=== PATIENT | male | born 1960 | race Caucasian/White ===

== ENCOUNTER → 2021-01-25 07:33 | Outpatient (CLI) | payer OTHER, SELFPAY ==
[2021-01-25] MEDS: COVID-19 VACC #1, MRNA(MOD) 100 MCG/0.5 ML VIAL IM (07:40)
== END ==
PROVIDERS: Visit Provider Internal Medicine
DX: Z23 Encounter for immunization (principal)
CPT/HCPCS: 0011A; 91301

== ENCOUNTER → 2021-02-14 08:28 | Outpatient (CLI) | payer OTHER, SELFPAY ==
[2021-02-14 08:48] LABS: Add Manual Diff / Slide Review NO; Basophils Absolute Auto 0 /uL (0-100); Basophils Percent Auto 0.4 % (0-2); Eosinophils Absolute Auto 100 /uL (0-450); Hematocrit 39.8 % (41-53); Hemoglobin 13.7 g/dL (13.5-17.5); Lymphocytes Absolute Auto 1300 /uL (1100-4500); Lymphocytes Percent Auto 25.3 % (25-40); Mean Corpuscular HGB Conc 34.4 % (30-36); Mean Corpuscular Hemoglobin 31.7 PG (26-34); Mean Corpuscular Volume 92.1 fL (80-100); Monocytes Absolute Auto 400 /uL (0-900); Monocytes Percent Auto 7.2 % (3-14); Neutrophils Absolute Auto 3300 /uL (1500-7000); Neutrophils Percent Auto 66.1 % (50-75); Platelet Count 223 X10^3/uL (150-400); Red Blood Cell Count 4.32 X10^6/uL (4.5-5.9); Red Cell Distribution Width 13.1 % (11.6-14.8)
[2021-02-14 09:07] LABS: Alanine Aminotransferase 23 IU/L (<50); Albumin 4.1 g/dL (3.5-5.0); Albumin Globulin Ratio 1.5 (1.0-2.8); Alkaline Phosphatase 69 U/L (38-126); Aspartate Aminotransferase 25 IU/L (17-59); BUN Creatinine Ratio 18.1 (6-22); Bilirubin Total 0.5 mg/dL (0.2-1.3); Blood Urea Nitrogen 19 mg/dL (9-20); Carbon Dioxide 28 mmol/L (22-32); Chloride 105 mmol/L (98-107); Cholesterol 181 mg/dL (140-199); Estimated Glomerular Filt Rate > 60.0 mL/min (>60); Globulin 2.7 g/dL (1.7-4.1); Glucose 106 mg/dL (70-100); HDL Cholesterol 52 mg/dL (40-60); HEMOLYSIS < 15 (0-50); LDL Cholesterol Calculated 108 mg/dL (<100); Potassium 4.8 mmol/L (3.4-5.1); Sodium 139 mmol/L (137-145); Total Protein 6.8 g/dL (6.3-8.2); Triglycerides 107 mg/dL (35-150)
[2021-02-14 09:34] LABS: Prostate Specific Antigen Scrn 2.58 ng/mL (0.1-4.0)
== END ==
PROVIDERS: PCP Registered Nurse; Referring Provider Registered Nurse; Visit Provider Registered Nurse
DX: Z00.00 Encounter for general adult medical examination without abnormal findings (principal); J45.909 Unspecified asthma, uncomplicated; Z12.5 Encounter for screening for malignant neoplasm of prostate
CPT/HCPCS: 36415; 80053; 80061; 85025; G0103

== ENCOUNTER → 2021-02-22 07:33 | Outpatient (CLI) | payer OTHER, SELFPAY ==
[2021-02-22] MEDS: COVID-19 VACC #2, MRNA(MOD) 100 MCG/0.5 ML VIAL IM (07:40)
== END ==
PROVIDERS: PCP Registered Nurse; Visit Provider Internal Medicine
DX: Z23 Encounter for immunization (principal)
CPT/HCPCS: 0012A; 91301

== ENCOUNTER → 2021-07-23 08:22 | Outpatient (CLI) | payer OTHER, SELFPAY ==
[2021-07-23 09:09] LABS: COVID19 -Nasal RAPID Negative (Negative)
== END ==
PROVIDERS: PCP Registered Nurse; Visit Provider Physician Assistant
DX: Z20.822 Contact with and (suspected) exposure to COVID-19 (principal); R05 Cough; R19.7 Diarrhea, unspecified; R51.9 Headache, unspecified
CPT/HCPCS: 87635

== ENCOUNTER → 2022-05-21 12:35 | Outpatient (CLI) | payer OTHER, SELFPAY ==
[2022-05-21 13:56] LABS: COVID19 -Nasal RAPID Negative (Negative)
== END ==
PROVIDERS: PCP Family Medicine; Referring Provider Internal Medicine; Visit Provider Internal Medicine
DX: Z20.822 Contact with and (suspected) exposure to COVID-19 (principal)
CPT/HCPCS: 87635; C9803

== ENCOUNTER → 2022-05-22 06:52 | Outpatient (CLI) | payer OTHER, SELFPAY ==
[2022-05-22 08:54] LABS: Add Manual Diff / Slide Review NO; Basophils Absolute Auto 0 /uL (0-100); Basophils Percent Auto 0.4 % (0-2); Eosinophils Absolute Auto 0 /uL (0-450); Eosinophils Percent Auto 0.5 % (2-4); Hematocrit 41.2 % (41-53); Hemoglobin 14.4 g/dL (13.5-17.5); Lymphocytes Absolute Auto 1500 /uL (1100-4500); Lymphocytes Percent Auto 31.1 % (25-40); Mean Corpuscular HGB Conc 34.8 % (30-36); Mean Corpuscular Hemoglobin 31.8 PG (26-34); Mean Corpuscular Volume 91.2 fL (80-100); Monocytes Absolute Auto 400 /uL (0-900); Monocytes Percent Auto 7.9 % (3-14); Neutrophils Absolute Auto 2900 /uL (1500-7000); Neutrophils Percent Auto 60.1 % (50-75); Platelet Count 217 X10^3/uL (150-400); Red Blood Cell Count 4.52 X10^6/uL (4.5-5.9); White Blood Cell Count 4.8 X10^3/uL (4.5-11.0)
[2022-05-22 09:13] LABS: Hemoglobin A1C% w Est Avg Glu 5.4 % (4.0-6.0)
[2022-05-22 09:50] LABS: Alanine Aminotransferase 16 IU/L (<50); Albumin 4.4 g/dL (3.5-5.0); Albumin Globulin Ratio 1.6 (1.0-2.8); Alkaline Phosphatase 63 U/L (38-126); Aspartate Aminotransferase 25 IU/L (17-59); Bilirubin Total 0.8 mg/dL (0.2-1.3); Blood Urea Nitrogen 25 mg/dL (9-20); Calcium 8.9 mg/dL (8.4-10.2); Carbon Dioxide 27 mmol/L (22-32); Chloride 104 mmol/L (98-107); Cholesterol 175 mg/dL (140-199); Estimated Glomerular Filt Rate > 60 mL/min (>60); Globulin 2.7 g/dL (1.7-4.1); Glucose 102 mg/dL (80-110); HDL Cholesterol 54 mg/dL (40-60); HEMOLYSIS < 15 (0-50); LDL Cholesterol Calculated 106 mg/dL (<100); Potassium 4.6 mmol/L (3.4-5.1); Sodium 138 mmol/L (137-145); Total Protein 7.1 g/dL (6.3-8.2); Triglycerides 77 mg/dL (35-150)
[2022-05-22 10:20] LABS: Prostate Specific Antigen Scrn 2.42 ng/mL (0.1-4.0)
--- NOTE | 2022-05-28 09:23 | PM.PFT.1 ---
Pulmonary Function Test Referral & Results Date Patient Seen: 05/22/22 Requesting provider: Mihai Alarcon Results: The spirometry demonstrates an FVC of 5.22 L which is 95% of predicted. The FEV1 was measured at 4.0 L which is 97% of predicted. The FEV1/FVC ratio was 77 which is 100% of predicted. Following the administration of bronchodilator there was no notable change to above normal numbers. Lung volumes show an SVC of 5.17 L which is 97% of predicted. The diffusing capacity was measured at 35.57 which is 94% of predicted. The maximum voluntary ventilation was normal Interpretation: This study demonstrates normal pulmonary function
== END ==
PROVIDERS: PCP Family Medicine; Referring Provider Family Medicine; Visit Provider Family Medicine
DX: E78.2 Mixed hyperlipidemia (principal); J45.20 Mild intermittent asthma, uncomplicated; R73.9 Hyperglycemia, unspecified; Z12.5 Encounter for screening for malignant neoplasm of prostate
CPT/HCPCS: 36415; 80053; 80061; 83036; 84443; 85025; 94060; 94726; 94729; G0103

== ENCOUNTER → 2022-05-27 06:59 | Outpatient (CLI) | payer OTHER, SELFPAY ==
--- NOTE | 2022-05-27 07:08 | DI.CT.S_ITS ---
PROCEDURE: CT CHEST WO CON INDICATIONS: Long COVID, difficulty getting deep breath, fm hx lung CA TECHNIQUE: Noncontrast 5 mm thick sections acquired from the pulmonary apices to the posterior costophrenic angles. 1 mm lung window, 5 mm thick coronal and sagittal and 7 mm axial MIP reformats were then acquired. For radiation dose reduction, the following was used: automated exposure control, adjustment of mA and/or kV according to patient size. COMPARISON: None. FINDINGS: Image quality: Excellent. Lungs and pleura: No acute air space opacities. No pleural effusions or pneumothorax. Central and peripheral airways are patent and normal in caliber. There is an incidentally noted azygos lobe. Mediastinum: Heart size is normal. No pericardial effusion. No mediastinal adenopathy by size criteria. Thoracic aorta and central pulmonary arteries are normal in size. Esophagus is normal in caliber. No hiatal hernia. Bones and chest wall: No suspicious bony lesions. No vertebral body compression fractures. No axillary or supraclavicular adenopathy by size criteria. Thyroid gland is unremarkable . Abdomen: Visualized upper abdominal solid organs and bowel loops appear normal in the absence of contrast. IMPRESSION: 1. No pulmonary nodules, pulmonary mass lesions or acute airspace opacities. No findings to explain patient's symptoms. Dictated by: Sara Mcneal M.D. on 05/27/2022 at 7:55 Approved by: Sara Mcneal M.D. on 05/27/2022 at 8:00
== END ==
PROVIDERS: PCP Family Medicine; Referring Provider Family Medicine; Visit Provider Family Medicine
DX: U09.9 Post COVID-19 condition, unspecified (principal); J45.20 Mild intermittent asthma, uncomplicated; R06.00 Dyspnea, unspecified
CPT/HCPCS: 71250

== ENCOUNTER → 2023-04-24 09:12 | Outpatient (CLI) | payer OTHER, SELFPAY ==
[2023-04-24 10:36] LABS: Add Manual Diff / Slide Review NO; Basophils Absolute Auto 0 /uL (0-100); Basophils Percent Auto 0.3 % (0-2); Eosinophils Absolute Auto 0 /uL (0-450); Eosinophils Percent Auto 0.6 % (2-4); Hematocrit 40.1 % (41-53); Lymphocytes Absolute Auto 1600 /uL (1100-4500); Lymphocytes Percent Auto 25.9 % (25-40); Mean Corpuscular HGB Conc 34.9 % (30-36); Mean Corpuscular Hemoglobin 31.7 PG (26-34); Mean Corpuscular Volume 90.7 fL (80-100); Monocytes Absolute Auto 400 /uL (0-900); Monocytes Percent Auto 7.1 % (3-14); Neutrophils Absolute Auto 4100 /uL (1500-7000); Neutrophils Percent Auto 66.1 % (50-75); Platelet Count 218 X10^3/uL (150-400); Red Blood Cell Count 4.42 X10^6/uL (4.5-5.9); Red Cell Distribution Width 12.6 % (11.6-14.8); White Blood Cell Count 6.2 X10^3/uL (4.5-11.0)
[2023-04-24 11:17] LABS: Alanine Aminotransferase 28 IU/L (<50); Albumin 4.2 g/dL (3.5-5.0); Albumin Globulin Ratio 1.4 (1.0-2.8); Alkaline Phosphatase 72 U/L (38-126); Aspartate Aminotransferase 28 IU/L (17-59); BUN Creatinine Ratio 15.3 (6-22); Bilirubin Total 0.6 mg/dL (0.2-1.3); Blood Urea Nitrogen 17 mg/dL (9-20); Calcium 8.9 mg/dL (8.4-10.2); Carbon Dioxide 28 mmol/L (22-32); Chloride 103 mmol/L (98-107); Cholesterol 185 mg/dL (140-199); Estimated Glomerular Filt Rate > 60 mL/min (>60); Glucose 102 mg/dL (80-110); HDL Cholesterol 48 mg/dL (40-60); HEMOLYSIS < 15 (0-50); LDL Cholesterol Calculated 105 mg/dL (<100); Potassium 4.4 mmol/L (3.4-5.1); Sodium 138 mmol/L (137-145); Total Protein 7.2 g/dL (6.3-8.2); Triglycerides 162 mg/dL (35-150)
[2023-04-24 11:46] LABS: Prostate Specific Antigen Scrn 2.93 ng/mL (0.1-4.0)
[2023-04-24 11:48] LABS: TSH w/ Reflex to FT4 1.27 uIU/mL (0.47-4.68)
== END ==
PROVIDERS: PCP Family Medicine; Referring Provider Family Medicine; Visit Provider Family Medicine
DX: E78.5 Hyperlipidemia, unspecified (principal); J45.909 Unspecified asthma, uncomplicated; R73.9 Hyperglycemia, unspecified; Z12.5 Encounter for screening for malignant neoplasm of prostate
CPT/HCPCS: 36415; 80053; 80061; 84443; 85025; G0103

== ENCOUNTER → 2023-11-02 09:29 | Outpatient (CLI) | payer OTHER, SELFPAY | PROVIDERS: PCP Family Medicine; Visit Provider Physician Assistant | DX: R35.0 Frequency of micturition (principal) | CPT/HCPCS: 87086 ==

== ENCOUNTER → 2024-07-18 07:57 | Outpatient (CLI) | payer OTHER, SELFPAY ==
[2024-07-18 08:31] LABS: Add Manual Diff / Slide Review NO; Basophils Absolute Auto 0 /uL (0-100); Basophils Percent Auto 0.4 % (0-2); Eosinophils Absolute Auto 0 /uL (0-450); Eosinophils Percent Auto 0.8 % (2-4); Hematocrit 40.9 % (41-53); Hemoglobin 13.9 g/dL (13.5-17.5); Lymphocytes Absolute Auto 1500 /uL (1100-4500); Lymphocytes Percent Auto 30.6 % (25-40); Mean Corpuscular HGB Conc 34.1 % (30-36); Mean Corpuscular Hemoglobin 31.3 PG (26-34); Mean Corpuscular Volume 91.8 fL (80-100); Monocytes Absolute Auto 400 /uL (0-900); Monocytes Percent Auto 7.7 % (3-14); Neutrophils Absolute Auto 3000 /uL (1500-7000); Neutrophils Percent Auto 60.5 % (50-75); Platelet Count 225 X10^3/uL (150-400); Red Blood Cell Count 4.45 X10^6/uL (4.5-5.9); Red Cell Distribution Width 13.1 % (11.6-14.8); White Blood Cell Count 4.9 X10^3/uL (4.5-11.0)
[2024-07-18 08:57] LABS: Alanine Aminotransferase 32 IU/L (<50); Albumin 4.1 g/dL (3.5-5.0); Albumin Globulin Ratio 1.6 (1.0-2.8); Alkaline Phosphatase 80 U/L (38-126); Aspartate Aminotransferase 32 IU/L (17-59); BUN Creatinine Ratio 15.7 (6-22); Bilirubin Total 0.8 mg/dL (0.2-1.3); Blood Urea Nitrogen 17 mg/dL (9-20); Calcium 8.8 mg/dL (8.4-10.2); Carbon Dioxide 27 mmol/L (22-32); Chloride 103 mmol/L (98-107); Cholesterol 187 mg/dL (140-199); Estimated Glomerular Filt Rate > 60 mL/min (>60); Globulin 2.6 g/dL (1.7-4.1); Glucose 108 mg/dL (80-110); HDL Cholesterol 49 mg/dL (40-60); HEMOLYSIS < 15 (0-50); LDL Cholesterol Calculated 118 mg/dL (<100); Potassium 4.6 mmol/L (3.4-5.1); Sodium 136 mmol/L (137-145); Total Protein 6.7 g/dL (6.3-8.2); Triglycerides 100 mg/dL (35-150)
[2024-07-18 09:26] LABS: Prostate Specific Antigen 3.08 ng/mL (0.10-4.00)
== END ==
LOC: LAB 07:57
PROVIDERS: PCP Family Medicine; Referring Provider Family Medicine; Visit Provider Family Medicine
DX: R79.89 Other specified abnormal findings of blood chemistry (principal); Z12.5 Encounter for screening for malignant neoplasm of prostate; E78.5 Hyperlipidemia, unspecified
CPT/HCPCS: 36415; 80053; 80061; 84153; 85025

== ENCOUNTER 2025-09-16 11:05 | Emergency (ER) | payer OTHER, SELFPAY ==
[2025-09-16] VITALS (15 sets, daily range): BP systolic 136–168; BP diastolic 74–101; PULSE 57–138; RESP 12–23; TEMP 37.1; O2SAT 96–100; BMI 32.5
--- NOTE | 2025-09-16 11:15 | DI.RAD.S_ITS ---
PROCEDURE: XR CHEST 1V INDICATIONS: Chest Pain TECHNIQUE: One view of the chest was acquired. COMPARISON: None. FINDINGS: Surgical changes and devices: None. Lungs and pleura: Lungs are clear. No pleural effusions or pneumothorax. Mediastinum: Mediastinal contours appear normal. Heart size is normal. Bones and chest wall: No suspicious bony lesions. Overlying soft tissues appear unremarkable. IMPRESSION: No acute cardiopulmonary abnormality is seen. Approved by: Derek York M.D. on 09/16/2025 at 11:04
--- NOTE | 2025-09-16 11:15 | EKG_ITS ---
[address] [address] Test Date: 2025-09-16 Pat Name: Andrew Bowmna Department: [facility] Room: Gender: Male Commercial Lending Relationship Manager: ELYSIA : 1960 Requested By: Order Number: [id number] Reading MD: Jonathan John Measurements Intervals [place] Rate: 79 P: 38 [place]: 180 QRS: 45 QRSD: 92 T: 51 QT: 406 QTc: 465 Interpretive Statements Normal sinus rhythm Electronically Signed On 09-17-2025 7:59:30 PST by Jonathan John
[2025-09-16 11:29] LABS: Add Manual Diff / Slide Review NO; Hematocrit 43.0 % (41-53); Hemoglobin 14.7 g/dL (13.5-17.5); Lymphocytes Absolute Auto 2200 /uL (1100-4500); Mean Corpuscular HGB Conc 34.3 % (30-36); Mean Corpuscular Hemoglobin 31.4 PG (26-34); Mean Corpuscular Volume 91.4 fL (80-100); Platelet Count 247 X10^3/uL (150-400)
--- NOTE | 2025-09-16 11:33 | ED_ITS ---
HPI - Arrhythmia/Palpitations General Chief Complaint: Arrhythmia/Palpitations Stated Complaint: poss AFIB; feels off Time Seen by Provider: 09/16/25 11:33 History of Present Illness HPI narrative: 65 years old male without comorbidities came in today complaining of heart palpitation with fluttering and not feeling good this morning. His watch device the take heart rate in the 170s and on the ramesh showed atrial fibrillation. He called his doctor and was asked to come to the ED. In our ED his heart rate was 138 but since 12 lead EKG shows sinus rhythm and has been persistent sinus rhythm in the 80s in the ED. he denied any chest pain, shortness of breath, sweating, nausea vomiting, dizziness, lightheadedness, loss of consciousness, abdominal pain, nausea vomiting, decreased oral intake, diarrhea, urine problem, dehydration, alcohol, history of heart problem, leg pain, leg swelling, fever, runny nose, sore throat, coughing. He has been doing exercise every day and no similar episodes in the past. Related Data Previous Rx's ?Medication ?Instructions ?Recorded nirmatrelvir 300 mg (150 mg See Rx Instructions PO .CO MPLEX 11/02/23 x2)-ritonavir 100 mg tablet,dose #30 ea pack (Paxlovid) metoprolol succinate 25 mg 12.5 mg (1/2 x 25 mg) PO DA CALLY #60 09/16/25 tablet,extended release 24 hr tabs Allergies Allergy/AdvReac Type Severity Reaction Status Date / Time No Known Drug Allergies Allergy Unverified 11/02/23 09:08 Review of Systems Review of Systems Narrative: Positive for palpitation, fast heart rate. Not feeling good. Negative for chest pain, shortness of breath, sweating, nausea vomiting, dizziness, lightheadedness, loss of consciousness, abdominal pain, nausea vomiting, decreased oral intake, diarrhea, urine problem, dehydration, alcohol, history of heart problem, leg pain, leg swelling, fever, runny nose, sore throat, coughing. He has been doing exercise every day and no similar episodes in the past. Patient History Medical History Hyperlipidemia Adult general medical exam Exam Narrative Exam Narrative: GENERAL: Alert awake without acute distress. HEAD: Atraumatic. Normocephalic. NECK: Trachea midline. Non tender CARDIOVASCULAR: Regular rate and rhythm without murmurs, gallops, or rubs. RESPIRATORY: Clear to auscultation. Breath sounds equal bilaterally. No wheezes, rales, or rhonchi. GASTROINTESTINAL: Abdomen soft, non-tender, nondistended. EXTREMITIES: No edema or joint tenderness. BACK: Nontender without deformity or crepitance. No flank tenderness. NEURO: AOx3. SKIN: No rash or erythema of visible areas Initial Vital Signs Initial Vital Signs: Vital Signs Temperature 98.7 F 09/16/25 11:13 Pulse Rate 138 H 09/16/25 11:13 Respiratory Rate 16 09/16/25 11:13 Blood Pressure 136/101 H 09/16/25 11:13 Pulse Oximetry 98 09/16/25 11:13 Oxygen Delivery Method Room Air 09/16/25 11:13 Scores CHADS-VASc Congestive heart failure: no Hypertension: no Age 75 years or older: no Diabetes mellitus: no Stroke, TIA, or TE: no Vascular disease: no Age 65 to 74 years: no Sex category (female): Male CHADS-VASc Score: 0 Course Orders Ordered: ED Orders 09/16/25 11:15 XR chest 1V Stat Complete Blood Count AUTO DIFF Stat Comprehensive Metabolic Panel Stat Free T3, Triiodothyronine Free Stat Free T4, Direct Thyroxine Stat Lipase Stat Magnesium Stat NT-proBNP (BNP-Adult 18+) Stat PTT Partial Thromboplastin Jordy Stat Prothrombin Time INR Stat TSH [Thyroid Stimulating Hormone] Stat Troponin & CK Cardiac Panel Stat EKG-12 Lead Stat 09/16/25 13:26 Trop I [Troponin I] Stat Discontinued Medications Sodium Chloride (Normal Saline 0.9%) 1,000 mls @ 1,000 mls/hr IV BOLUS ONE Stop: 09/16/25 13:40 Last Infusion: 09/16/25 13:57 Dose: Infused Documented By: Admin: 09/16/25 12:44 Dose: 1,000 mls/hr Documented By: MARIVEL Metoprolol Succinate (Metoprolol Er 25 Mg Tablet) 25 mg PO NOW ONE Stop: 09/16/25 14:14 Last Admin: 09/16/25 14:58 Dose: Not Given Documented By: MARIVEL Metoprolol Succinate (Metoprolol Er 25 Mg Tablet) 12.5 mg PO NOW ONE Stop: 09/16/25 14:19 Last Admin: 09/16/25 14:22 Dose: 12.5 mg Documented By: MARIVEL Vital Signs Vital signs: Vital Signs - 8 hr 09/16/25 11:13 09/16/25 11:18 09/16/25 11:18 Temperature 98.7 F Pulse Rate 138 H 79 Respiratory Rate 16 20 Blood Pressure 136/101 H 164/100 H Pulse Oximetry 98 97 Oxygen Delivery Method Room Air 09/16/25 11:30 09/16/25 11:30 09/16/25 11:56 Temperature Pulse Rate 79 Respiratory Rate 21 Blood Pressure 154/97 H 146/87 H Pulse Oximetry 96 Oxygen Delivery Method 09/16/25 11:56 09/16/25 12:00 09/16/25 12:00 Temperature Pulse Rate 70 71 Respiratory Rate 15 20 Blood Pressure 147/89 H Pulse Oximetry 97 97 Oxygen Delivery Method 09/16/25 12:30 09/16/25 12:30 09/16/25 13:00 Temperature Pulse Rate 68 Respiratory Rate 17 Blood Pressure 145/87 H 153/88 H Pulse Oximetry 98 Oxygen Delivery Method 09/16/25 13:00 09/16/25 13:30 09/16/25 13:30 Temperature Pulse Rate 60 66 Respiratory Rate 19 19 Blood Pressure 156/90 H Pulse Oximetry 99 100 Oxygen Delivery Method 09/16/25 14:02 09/16/25 14:03 09/16/25 14:03 Temperature Pulse Rate 60 58 L Respiratory Rate 12 13 Blood Pressure 168/88 H Pulse Oximetry 98 99 Oxygen Delivery Method 09/16/25 14:30 09/16/25 15:00 09/16/25 15:27 Temperature Pulse Rate 67 61 Respiratory Rate 16 19 Blood Pressure 156/74 H Pulse Oximetry 99 98 Oxygen Delivery Method 09/16/25 15:27 Temperature Pulse Rate 58 L Respiratory Rate 21 Blood Pressure Pulse Oximetry 99 Oxygen Delivery Method MDM - Arrhythmia/Palpitations Lab Data 09/16/25 11:15 09/16/25 11:15 Labs: Lab Results 09/16/25 09/16/25 Range/Units 11:15 13:26 WBC 7.0 (4.5-11.0) X10^3/uL RBC 4.70 (4.5-5.9) X10^6/uL Hgb 14.7 (13.5-17.5) g/dL Hct 43.0 (41-53) % MCV 91.4 (80-100) fL MCH 31.4 (26-34) PG MCHC 34.3 (30-36) % RDW 13.0 (11.6-14.8) % Plt Count 247 (150-400) X10^3/uL Neut % (Auto) 59.1 (50-75) % Lymph % (Auto) 32.0 (25-40) % [place] % (Auto) 8.1 (3-14) % Eos % (Auto) 0.6 L (2-4) % Baso % (Auto) 0.2 (0-2) % Neut # (Auto) 4100 (6907-0060) /uL Lymph # (Auto) 2200 (3280-0717) /uL [place] # (Auto) 600 (0-900) /uL Eos # (Auto) 0 (0-450) /uL Baso # (Auto) 0 (0-100) /uL PT 12.5 (9.4-12.5) SECONDS INR 1.1 (0.9-1.3) APTT 32 (25.1-36.5) SECONDS Sodium 139 (137-145) mmol/L Potassium 4.3 (3.4-5.1) mmol/L Chloride 103 (98-107) mmol/L Carbon Dioxide 27 (22-32) mmol/L BUN 28 H (9-20) mg/dL Creatinine 1.22 (0.66-1.25) mg/dL Estimated GFR > 60 (>60) mL/min BUN/Creatinine Ratio 23.0 H (6-22) Glucose 92 (70-99) mg/dL Calcium 9.4 (8.4-10.2) mg/dL Magnesium 2.0 (1.6-2.3) mg/dL Total Bilirubin 0.6 (0.2-1.3) mg/dL AST 41 (17-59) IU/L ALT 28 (<50) IU/L Alkaline Phosphatase 70 (38-126) U/L Total Creatine Kinase 275 H (55-170) U/L Troponin I < 0.012 < 0.012 (0.01-0.034) ng/mL NT-Pro-B Natriuret Pep 44 (<125) pg/mL Total Protein 8.1 (6.3-8.2) g/dL Albumin 4.9 (3.5-5.0) g/dL Globulin 3.2 (1.7-4.1) g/dL Albumin/Globulin Ratio 1.5 (1.0-2.8) Lipase 62 (23-300) U/L TSH 0.327 L (0.47-4.68) uIU/mL Free T4 1.40 (0.78-2.19) ng/dL Free T3 3.15 (2.77-5.27) pg/mL ECG Data Interpretation: EKG showed normal sinus rhythm at 79 beats per minute without ischemic ST-T changes. Normal axis. No prolonged QT. MDM Narrative Medical decision making narrative: chest pain, shortness of breath, sweating, nausea vomiting, dizziness, lightheadedness, loss of consciousness, abdominal pain, nausea vomiting, decreased oral intake, diarrhea, urine problem, dehydration, alcohol, history of heart problem, leg pain, leg swelling, fever, runny nose, sore throat, coughing. He has been doing exercise every day and no similar episodes in the past. 1:13 p.m. I discussed the case with our aerotriangulation specialist on-call, Dr. Connor recommended metoprolol succinate 50 mg daily and check the TSH. His CV exam, abdominal exam, lung exam were normal. He is alert oriented x4 without acute distress in the ED. traffic monitor specialist in the ED showed intermittent atrial fibrillation. Most rhythm was in sinus rhythm rate between 60s to 80s. He was given dose of metoprolol XL 12.5 mg oral x1 in the ED. his thyroid function tests came back showed subclinical hypothyroidism. He had 2 set troponin were negative. His CBC, PT INR PTT, BNP, LFT, lipase were normal. His CK was 275 he was given IV normal saline 1 L in the ED. He was sent home with metoprolol XL 12.5 mg daily and referred to follow up with aerotriangulation specialist in the clinic. Please set up primary care doctor for follow up for atrial fibrillation, subclinical hyperthyroidism and get referral to see repairer finished metal outpatient. Please come back to the emergency room if any worsening symptoms including but not limited to palpitation, chest pain, shortness of breath, lightheadedness, loss consciousness. Please keep up with the hydration. I put a referral for you to see aerotriangulation specialist outpatient. Discharge Plan Departure Patient Disposition: Home Clinical Impression: Atrial fibrillation, Hyperthyroidism, subclinical Instructions: DI for Atrial Fibrillation Activity Restrictions/Additional Instructions: Please set up primary care doctor for follow up for atrial fibrillation, subclinical hyperthyroidism and get referral to see repairer finished metal outpatient. Please come back to the emergency room if any worsening symptoms including but not limited to palpitation, chest pain, shortness of breath, lightheadedness, loss consciousness. Please keep up with the hydration. I put a referral for you to see aerotriangulation specialist outpatient. Your TSH was 0.327 uIU/ml (0.47-4.68), free T4 1.49 mg/dL (0.78-2.19), free T3 3.15pg per mL (2.77-5.27). Prescriptions: New metoprolol succinate 25 mg tablet extended release 24 hr 12.5 mg PO DAILY Qty: 60 0RF No Action Paxlovid 300 mg (150 mg x 2)-100 mg tablets,dose pack See Rx Instructions PO .COMPLEX Qty: 30 0RF Rx Instructions: take TWO 150 mg tablets of nirmatrelvir with ONE 100 mg tablet of ritonavir twice daily for 5 days PO Referrals: Husam Connor MD [Physician, Cardiology] Clinical Impression: Hyperthyroidism, subclinical; Atrial fibrillation Gogo Barrientos MD [Primary Care Provider, Medical] Stand Alone Forms: Patient Portal/API
[2025-09-16 11:38] LABS: INR 1.1 (0.9-1.3); Prothrombin Time 12.5 SECONDS (9.4-12.5)
[2025-09-16 11:41] LABS: PTT Partial Thromboplastin Tim 32 SECONDS (25.1-36.5)
[2025-09-16 11:42] LABS: Alanine Aminotransferase 28 IU/L (<50); Albumin 4.9 g/dL (3.5-5.0); Albumin Globulin Ratio 1.5 (1.0-2.8); Alkaline Phosphatase 70 U/L (38-126); Blood Urea Nitrogen 28 mg/dL (9-20); Calcium 9.4 mg/dL (8.4-10.2); Carbon Dioxide 27 mmol/L (22-32); Chloride 103 mmol/L (98-107); Creatine Kinase 275 U/L (55-170); Estimated Glomerular Filt Rate > 60 mL/min (>60); Globulin 3.2 g/dL (1.7-4.1); Glucose 92 mg/dL (70-99); HEMOLYSIS < 15 (0-50); Lipase 62 U/L (23-300); Magnesium 2.0 mg/dL (1.6-2.3); Potassium 4.3 mmol/L (3.4-5.1); Sodium 139 mmol/L (137-145); Total Protein 8.1 g/dL (6.3-8.2)
[2025-09-16 11:53] LABS: NT-proBNP (BNP-Adult 18+) 44 pg/mL (<125); Troponin I < 0.012 ng/mL (0.01-0.034)
[2025-09-16] MEDS: SODIUM CHLORIDE 0.9% 1,000 ML 1000 ML IV (12:44)
[2025-09-16 14:07] LABS: Troponin I < 0.012 ng/mL (0.01-0.034)
[2025-09-16 14:07] LABS: Thyroid Stimulating Hormone 0.327 uIU/mL (0.47-4.68)
[2025-09-16] MEDS: METOPROLOL ER 25 MG TABLET 12.5 MG PO (14:22)
[2025-09-16 15:09] LABS: Free T3, Triiodothyronine Free 3.15 pg/mL (2.77-5.27); Free T4, Direct Thyroxine 1.40 ng/dL (0.78-2.19)
== END 2025-09-16 16:19 | disposition home or self-care (01) ==
PROVIDERS: Emergency Provider Emergency Medicine; PCP Family Medicine
DX: I48.91 Unspecified atrial fibrillation (principal); E05.80 Other thyrotoxicosis without thyrotoxic crisis or storm
CPT/HCPCS: 36415; 71045; 80053; 82550; 83690; 83735; 83880; 84439; 84443; 84481; 84484; 85025; 85610; 85730; 93005; 99284; J7030